=== PATIENT | male | born 1945 | race Caucasian/White ===

== ENCOUNTER → 2017-11-18 | Outpatient (CLI) | payer OTHER ==
[~2017-11-18] MED LIST: ASPI325EC PO; EZET10 PO; HTN; LEVOTHYROXINE; Prinivil10 MG PO; Synthroid112 MCG PO
== END | disposition home or self-care (01) ==
LOC: LAB 18:07
DX: R97.20 Elevated prostate specific antigen [PSA] (principal)
CPT/HCPCS: 87070

== ENCOUNTER → 2017-12-24 | Outpatient (CLI) | payer OTHER | END | disposition home or self-care (01) | LOC: PLD 08:42 | DX: R97.20 Elevated prostate specific antigen [PSA] (principal) | CPT/HCPCS: 88305; 88341; 88342 ==

== ENCOUNTER 2022-01-31 21:58 | Emergency (ER) | payer OTHER ==
[~2022-01-31] VITALS: Ht 172.7 cm; Wt 68.5 kg
== END 2022-02-01 03:30 | disposition home or self-care (01) ==
LOC: ER 21:58
DX: R33.9 Retention of urine, unspecified (principal); Z88.0 Allergy status to penicillin; Z79.899 Other long term (current) drug therapy; Z79.82 Long term (current) use of aspirin; I10 Essential (primary) hypertension; E03.9 Hypothyroidism, unspecified; E78.00 Pure hypercholesterolemia, unspecified
CPT/HCPCS: 51700; 99283-25

== ENCOUNTER 2022-11-06 11:37 | Emergency (ER) | payer OTHER ==
[~2022-11-06] VITALS: Ht 172.7 cm; Wt 70.3 kg
[2022-11-06] MEDS ORDERED: HYDR1TAB94 PO (14:24)
== END 2022-11-06 14:31 | disposition home or self-care (01) ==
LOC: ER 11:37
DX: K40.90 Unilateral inguinal hernia, without obstruction or gangrene, not specified as recurrent (principal); I10 Essential (primary) hypertension; E03.9 Hypothyroidism, unspecified; Z79.890 Hormone replacement therapy; Z79.82 Long term (current) use of aspirin; Z79.899 Other long term (current) drug therapy; Z88.0 Allergy status to penicillin
CPT/HCPCS: 99283-25

== ENCOUNTER 2022-11-09 16:16 | Emergency (ER) | payer OTHER ==
[~2022-11-09] VITALS: Ht 172.7 cm; Wt 70.3 kg
[~2022-11-09 16:16] MED LIST changes: +HYDR1TAB94 PO
[2022-11-09 17:06] LABS: BASOPHILS ABSOLUTE AUTO 0.09 K/mm3 (0.00-0.23); BASOPHILS PERCENT AUTO 1 % (0-2); EOSINOPHILS ABSOLUTE AUTO 0.09 K/mm3 (0.00-0.68); EOSINOPHILS PERCENT AUTO 1 % (0-6); Hematocrit 44.2 % (37.0-53.0); Hemoglobin 15.5 g/dL (13.5-17.5); IMMATURE GRAN ABSOLUTE AUTO 0.03 K/mm3 (0.00-0.10); IMMATURE GRAN PERCENT AUTO 0 % (0-1); LYMPHOCYTES ABSOLUTE AUTO 1.99 K/mm3 (0.84-5.20); LYMPHOCYTES PERCENT AUTO 26 % (21-46); MONOCYTES ABSOLUTE AUTO 0.58 K/mm3 (0.16-1.47); MONOCYTES PERCENT AUTO 8 % (4-13); Mean Corpuscular HGB 32.8 pg (26.0-34.0); Mean Corpuscular HGB Conc 35.1 g/dL (31.5-36.5); Mean Corpuscular Volume 93 fL (80-100); Mean Platelet Volume 9.9 fL (9.1-12.4); NEUTROPHILS ABSOLUTE AUTO 4.92 K/mm3 (1.96-9.15); NEUTROPHILS PERCENT AUTO 64 % (41-73); Platelet Count 303 K/mm3 (150-400); RDW Coefficient Variation 12.1 % (11.7-14.2); RDW Standard Deviation 42.3 fL (35.1-46.3); Red Blood Cell Count 4.73 M/mm3 (4.30-5.90)
[2022-11-09 17:48] LABS: Source, Urine Clean Catch
[2022-11-09 17:52] LABS: Albumin, Blood 3.7 g/dL (3.4-5.0); Albumin/Globulin Ratio 1.3 (0.8-1.8); Bilirubin, Total 0.9 mg/dL (0.1-1.0); Bun/Creatinine Ratio 16.7 (12.0-20.0); Calcium, Blood 8.9 mg/dL (8.5-10.1); Creatinine, Blood 0.96 mg/dL (0.60-1.20); Globulin, Blood 2.9 g/dL (2.2-4.0); Potassium, Blood 4.3 mmol/L (3.5-5.5); Total Protein, Blood 6.6 g/dL (6.4-8.2)
[2022-11-09 18:59] LABS: Appearance, Urine Clear (Clear); Bilirubin, Urine Neg (Neg); Blood, Urine Neg (Neg); Color, Urine Yellow (P-Yellow); Glucose Qualitative, Urine Neg (Neg); Ketones, Urine 2+ (Neg); Leukocyte Esterase, Urine 1+ (Neg); Nitrite, Urine Neg (Neg); Protein, Urine Neg (Neg); Specific Gravity, Urine 1.015 (1.003-1.022); Urobilinogen, Urine NORM (Normal)
[2022-11-09 19:16] LABS: Bacteria Few /hpf; Red Blood Cells, Urine 0-2 /hpf (0-2); Squamous Epithelial Cells Few /hpf (Few)
[2022-11-09] MEDS ORDERED: Roxicodone5 MG PO (20:50)
[2022-11-09] MEDS ORDERED: Neurontin 300300 MG PO (20:50)
== END 2022-11-09 21:18 | disposition home or self-care (01) ==
LOC: ER 16:16
PROVIDERS: Emergency Medicine; Physician Assistant
DX: M54.16 Radiculopathy, lumbar region (principal); I10 Essential (primary) hypertension; E03.9 Hypothyroidism, unspecified; Z79.899 Other long term (current) drug therapy; Z79.82 Long term (current) use of aspirin; Z88.0 Allergy status to penicillin
CPT/HCPCS: 36415; 74177; 80053; 81001; 83690; 85025; A9270; J1170; J1885; Q9967

== ENCOUNTER 2022-11-22 07:45 | Day surgery (SDC) | payer OTHER ==
[~2022-11-22] VITALS: Ht 172.7 cm; Wt 70.3 kg
[~2022-11-22 07:45] MED LIST changes: +Neurontin 300300 MG PO; +Roxicodone5 MG PO
--- NOTE | 2022-11-22 09:38 | NUR ---
11/22/22 0938 Lisa Jasmine 10MLS OF ROPIVACAINE 0.5% POURED ONTO STERILE FIELD FOR USE DURING CASE. LOCAL INJECTED BY DR. ZELAYA AFTER STERILE PREP.
== END 2022-11-22 11:32 | disposition home or self-care (01) ==
LOC: ORSCSDS 07:45
PROVIDERS: Surgery
PROC: 3E0M05Z Introduction of Adhesion Barrier into Peritoneal Cavity, Open Approach (ICD-10-PCS; principal; 2022-11-22 09:00)
PROC: 0YU50JZ Supplement Right Inguinal Region with Synthetic Substitute, Open Approach (ICD-10-PCS; principal; 2022-11-22 09:00)
DX: K40.90 Unilateral inguinal hernia, without obstruction or gangrene, not specified as recurrent (principal); I10 Essential (primary) hypertension; E03.9 Hypothyroidism, unspecified; E78.5 Hyperlipidemia, unspecified; Z79.899 Other long term (current) drug therapy
CPT/HCPCS: C1781; J0690; J1100; J1885; J2370; J2405; J2704; J2795; J3010; J7120

== ENCOUNTER 2023-07-01 07:05 | Day surgery (SDC) | payer OTHER ==
[~2023-07-01] VITALS: Ht 170.2 cm; Wt 67.8 kg
[2023-07-01] MEDS ORDERED: ZOCOR20 MG (07:49)
[2023-07-01] MEDS ORDERED: ASPI81CH (07:50)
[2023-07-01] MEDS ORDERED: SILD25T (07:50)
[2023-07-01 09:27] VITALS: BP 133/87
== END 2023-07-01 09:36 | disposition home or self-care (01) ==
LOC: ORSCSDS 07:05
PROVIDERS: Surgery
PROC: 0DJD8ZZ Inspection of Lower Intestinal Tract, Via Natural or Artificial Opening Endoscopic (ICD-10-PCS; principal; 2023-07-01 08:30)
DX: Z12.11 Encounter for screening for malignant neoplasm of colon (principal); Z86.010 Personal history of colon polyps; E78.5 Hyperlipidemia, unspecified; E03.9 Hypothyroidism, unspecified; I10 Essential (primary) hypertension; Z79.82 Long term (current) use of aspirin; Z79.899 Other long term (current) drug therapy
CPT/HCPCS: J2704; J7120

== ENCOUNTER 2023-08-05 10:23 | Day surgery (SDC) | payer OTHER ==
[~2023-08-05] VITALS: Ht 170.2 cm; Wt 68.9 kg
[~2023-08-05 10:23] MED LIST changes: +ASPI81CH; +SILD25T; +ZOCOR20 MG
--- NOTE | 2023-08-05 10:46 | NUR ---
08/05/23 1046 Alan Orellana CALL LIGHT WITHIN REACH. TETRACINE IN RIGHT EYE AT 1038 AND UBALDO IN AT 1037
[2023-08-05 11:44] VITALS: BP 119/79
--- NOTE | 2023-08-05 12:23 | NUR ---
08/05/23 1223 Aidee Ornelas IV D/C'D WITH CATH TIP INTACT. SITE WNL, NO SWELLING OR BLEEDING NOTED.
== END 2023-08-05 12:23 | disposition home or self-care (01) ==
LOC: ORSCSDS 10:23
PROVIDERS: Student in an Organized Health Care Education/Training Program
PROC: 08RJ3JZ Replacement of Right Lens with Synthetic Substitute, Percutaneous Approach (ICD-10-PCS; principal; 2023-08-05 11:45)
DX: H25.11 Age-related nuclear cataract, right eye (principal); E78.5 Hyperlipidemia, unspecified; I10 Essential (primary) hypertension; E03.9 Hypothyroidism, unspecified; Z79.899 Other long term (current) drug therapy
CPT/HCPCS: A9270; J2001; J2250; J3301; J7040; V2632